=== PATIENT | male | born 1975 | race Native Hawaiian/Other Pacific Islander ===

== ENCOUNTER 2023-08-30 12:57 | Outpatient (RCR) | payer OTHER, SELFPAY ==
--- NOTE | 2023-08-30 16:17 | OT.OP.EVAL ---
Visit Care Team Role Provider Type Sravanthi Marrero MD Attending Provider Non-Staff Primary Care Provider Referring Provider Specialty: Medical Address: [address] [place] [address], [id number] Email: Occupational Therapy Initial Evaluation OT Outpatient Adult Evaluation Start: 08/30/23 15:36 Freq: Status: Active Protocol: Document 08/30/23 15:37 AMS (Rec: 08/30/23 16:17 AMS [id number]) General Information - Adult Visit Number EVAL CHARGE ONLY; 0/12 visits authorized Plan of Care Dates 08/30/23 - 10/11/23 Insurance Information Prime; EVAL CHARGE ONLY; *12 visits auth Visit Start Time 13:30 Visit Stop Time 14:00 Total Visit Minutes 30 Treatment Setting Outpatient Care Note Type Initial Evaluation Identification Confirmed Yes Identification Confirmed By Self Goals Group Home Goals 1. Zev will be modified independent with home exercise program utilizing provided written and visual instructions from therapist as needed. 2. Zev will present with increased functional independence; this will be evidenced by the followina. Zev will obtain a QuickDASH UE Outcome Measure score 20.00 or less. 2b. Zev will obtain a QuickDASH UE Outcome Work Module score 30.00 or less. 2c. Zev will indicate 2 or less out of 10 on the Pain Assessment Grid relative to the L wrist. Assessment/Plan Treatment Assessment Zev is a 48 year-old left hand dominant male referred to outpatient OT secondary to L wrist pain s/p CSI for L trigger thumb. Medical history is significant for arthritis, back pain, blood pressure ( medication managed). 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 He completed Pain Assessment Grid and indicated 3 out of 10 on pain scale relative to dorsal L thumb and ulnar/volar surface of L wrist. Pain presents intermittently; he will cease an activity, including weight lifting/use of weights or bench press if pain presents. Report of receipt of corticosteroid injections every 6 months to L shoulder/L thumb (d/t trigger finger). Report of receipt of corticosteroid injection to L thumb approx 1 month ago d/t locking of thumb into flexion. QuickDASH UE Outcome Measure Score = 31.82; QuickDASH UE Outcome Work Module Score = 50 .00. Zev denied any numbness and/or tingling. Goniometer measurements were as follows: 43 degrees active pain-free L wrist flex vs 51 degrees active pain-free R wrist flex; 48 degrees active pain-free L wrist ext vs 47 degrees active pain-free R wrist ext; 15 degrees active pain-free L wrist RD vs 16 degrees active pain-free R wrist RD; 27 degrees active pain-free L wrist UD vs 30 degrees active pain-free R wrist UD. (+) intrinsic tightness noted bilaterally. (+) opposition to L 5th digit pad and base of L 5th digit. 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 males norm of 113.6 +/- 18.1) vs 47.0# of force L automatic mold sander ( compared to 50-54 y.o. males norm 101.9 +/- 17.0) w/ dynamometer II testing w/ elbow in 90 degrees flex. B 5/ 5 MMT w/ wrist flex/ext/RD/UD. Zev would likely benefit from outpatient OT secondary to intrinsic tightness, L wrist pain/discomfort, decreased L wrist range of motion, and decreased L automatic mold sander strength. Home Exercise Program 08/30/23 = Instructed in tendon glide(s) w/ focus on hook fist (hold vs passive assist from contralateral hand vs use of TT). Instructed in passive wrist flex and wrist ext w/ forearm supination and elbow extended w/ both passive exercises. Instructed to complete these exercises 1 x daily (w/ passive holds of 20 to 30 seconds). May need to do additional repetitions based on activities/repetitive use of hands/wrists. Length of treatment (weeks) 6 Plan of Care Start Date 08/30/23 Plan of Care End Date 10/11/23 Treatment Frequency Once a Week Therapeutic Contents Active Range of Motion,Client Education,Functional Activities,Home Exercise Program,Joint Protection, Manual Therapy,Education, Neurodevelopment Treatment, Neuromuscular Re-Education, Self-Care,Stretching/ Flexibility Activities, Therapeutic Activities, Therapeutic Exercises, Modalities Modalities As Needed,As Prescribed Additional Types of Modalities Heat/Ice/Contrast Baths/ Ultrasound
--- NOTE | 2023-09-23 15:58 | OT.OP.TRT ---
Visit Care Team Role Provider Type Sravanthi Marrero MD Attending Provider Non-Staff Primary Care Provider Referring Provider Specialty: Medical Address: [address] [place] [address], [id number] Email: Occupational Therapy Treatment Note OT Outpatient Treatment Note - Adult Start: 08/30/23 15:36 Freq: Status: Active Protocol: Document 09/23/23 15:48 AMS (Rec: 09/23/23 15:58 AMS [id number]) OT Outpatient Adult Treatment Note Session Time Visit Start Time 14:30 Visit Stop Time 14:55 Total Visit Minutes 25 Visit Information Visit Number 10/01 visits authorized Plan of Care Dates 08/30/23 - 10/11/23 Insurance Information Prime; EVAL CHARGE ONLY; *12 visits auth Setting Treatment Setting Outpatient Care Visit Type Note Type Treatment Note General Information General Information Zev is a 48 year-old left hand dominant male referred to outpatient OT secondary to L wrist pain s/p CSI for L trigger thumb. Medical history is significant for arthritis, back pain, blood pressure ( medication managed). 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 - Subjective Identification Type Name Identification Reconciled With Medical Record Observations Report of pain/discomfort of ulnar surface of L wrist. Reports having membership to [employer]; utilizing 20# DB w/ L hand vs 30# w/ R hand w/ bicep curls/alt bicep curls . (+) execution of bench press . Patient/Caregiver Compliance with Home Good Exercise Program Comment reports doing stretches - Objective Objective Measurements Please refer to below for progress towards meeting established OT goals: Long-Term Goals 1. Zev will be modified independent with home exercise program utilizing provided written and visual instructions from therapist as needed. 2. Zev will present with increased functional independence; this will be evidenced by the followina. Zev will obtain a QuickDASH UE Outcome Measure score 20.00 or less. 2b. Zev will obtain a QuickDASH UE Outcome Work Module score 30.00 or less. 2c. Zev will indicate 2 or less out of 10 on the Pain Assessment Grid relative to the L wrist. - Exercises 2 Descriptor Spherical weighted ball strengthening. 5.5# weighted spherical ball. Wrist ext forearm supported. 1 x 10. Wrist flex forearm supported. 1 x 10. Wrist ext, elbow ext, forearm not supported. 1 x 10. Weighted ball catch forearm supination. 1 x 10. Wrist UD/ball twist. [address]/ball twist. 1 x 10. Forearm supination/pronation. 1 x 10. 1 Descriptor Wrist stretches. - Assessment Assessment of Improvement Zev reported having membership at [employer] w / active modifications to strengthening routine given wrist pain; Zev also reported adjusting home strengthening routine (push- ups) given wrist pain actively utilizing push-up handles. Also rec fist push-ups, use of dumbbells for push-ups, chair dips or wall push-ups as additonal alternatives for home strengthening. Introduced spherical weighted ball as an option for distal UE strengthening; (+) response to this tool. This may be an option for home distal UE strengthening and Zev to consider further. 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 Home Exercise Program 09/23/23 = Weighted spherical ball 5.5#. Instructed in wrist ext forearm supported, wrist flex forearm supported, wrist ext, elbow ext, forearm not supported, weighted ball catch forearm supination, wrist UD/ ball twist, wrist RD/ball twist, and forearm supination/ pronation w/ elbow 90 degrees flex. Rec 3 x 15 every other day, 3 x a week. 08/30/23 = Instructed in tendon glide(s) w/ focus on hook fist (hold vs passive assist from contralateral hand vs use of TT). Instructed in passive wrist flex and wrist ext w/ forearm supination and elbow extended w/ both passive exercises. Instructed to complete these exercises 1 x daily (w/ passive holds of 20 to 30 seconds). May need to do additional repetitions based on activities/repetitive use of hands/wrists. - Plan Therapy Recommendations Continue with Current Program, Advance per Rehabilitation Protocol
--- NOTE | 2023-10-25 09:06 | OT.OP.DC ---
Visit Care Team Role Provider Type Sravanthi Marrero MD Attending Provider Non-Staff Primary Care Provider Referring Provider Address: [address] [place] [address], [id number] Email: OT Outpatient OT Outpatient Adult Evaluation Start: 08/30/23 15:36 Freq: Status: Active Protocol: Document 08/30/23 15:37 AMS (Rec: 08/30/23 16:17 AMS [id number]) General Information - Adult Visit Information Visit Number EVAL CHARGE ONLY; 0/12 visits authorized Plan of Care Dates 08/30/23 - 10/11/23 Insurance Information Prime; EVAL CHARGE ONLY; *12 visits auth Session Time Visit Start Time 13:30 Visit Stop Time 14:00 Total Visit Minutes 30 Setting Treatment Setting Outpatient Care Visit Type Note Type Initial Evaluation Identification Identification Confirmed Yes Identification Confirmed By Self Goals Passenger Brakeman Goals Passenger Brakeman Goals 1. Zev will be modified independent with home exercise program utilizing provided written and visual instructions from therapist as needed. 2. Zev will present with increased functional independence; this will be evidenced by the followina. Zev will obtain a QuickDASH UE Outcome Measure score 20.00 or less. 2b. Zev will obtain a QuickDASH UE Outcome Work Module score 30.00 or less. 2c. Zev will indicate 2 or less out of 10 on the Pain Assessment Grid relative to the L wrist. Assessment/Plan Assessment Treatment Assessment Zev is a 48 year-old left hand dominant male referred to outpatient OT secondary to L wrist pain s/p CSI for L trigger thumb. Medical history is significant for arthritis, back pain, blood pressure ( medication managed). 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 He completed Pain Assessment Grid and indicated 3 out of 10 on pain scale relative to dorsal L thumb and ulnar/volar surface of L wrist. Pain presents intermittently; he will cease an activity, including weight lifting/use of weights or bench press if pain presents. Report of receipt of corticosteroid injections every 6 months to L shoulder/L thumb (d/t trigger finger). Report of receipt of corticosteroid injection to L thumb approx 1 month ago d/t locking of thumb into flexion. QuickDASH UE Outcome Measure Score = 31.82; QuickDASH UE Outcome Work Module Score = 50 .00. Zev denied any numbness and/or tingling. Goniometer measurements were as follows: 43 degrees active pain-free L wrist flex vs 51 degrees active pain-free R wrist flex; 48 degrees active pain-free L wrist ext vs 47 degrees active pain-free R wrist ext; 15 degrees active pain-free L wrist RD vs 16 degrees active pain-free R wrist RD; 27 degrees active pain-free L wrist UD vs 30 degrees active pain-free R wrist UD. (+) intrinsic tightness noted bilaterally. (+) opposition to L 5th digit pad and base of L 5th digit. 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 males norm of 113.6 +/- 18.1) vs 47.0# of force L keel press operator ( compared to 50-54 y.o. males norm 101.9 +/- 17.0) w/ dynamometer II testing w/ elbow in 90 degrees flex. B 5/ 5 MMT w/ wrist flex/ext/RD/UD. Zev would likely benefit from outpatient OT secondary to intrinsic tightness, L wrist pain/discomfort, decreased L wrist range of motion, and decreased L keel press operator strength. Home Exercise Program 08/30/23 = Instructed in tendon glide(s) w/ focus on hook fist (hold vs passive assist from contralateral hand vs use of TT). Instructed in passive wrist flex and wrist ext w/ forearm supination and elbow extended w/ both passive exercises. Instructed to complete these exercises 1 x daily (w/ passive holds of 20 to 30 seconds). May need to do additional repetitions based on activities/repetitive use of hands/wrists. Plan Length of treatment (weeks) 6 Plan of Care Start Date 08/30/23 Plan of Care End Date 10/11/23 Treatment Frequency Once a Week Therapeutic Contents Active Range of Motion,Client Education,Functional Activities,Home Exercise Program,Joint Protection, Manual Therapy,Education, Neurodevelopment Treatment, Neuromuscular Re-Education, Self-Care,Stretching/ Flexibility Activities, Therapeutic Activities, Therapeutic Exercises, Modalities Modalities As Needed,As Prescribed Additional Types of Modalities Heat/Ice/Contrast Baths/ Ultrasound Functional Wrist/Hand Scan Hand Side Sensory Assessment Sensory Profile2 OT Outpatient Treatment Note - Adult Start: 08/30/23 15:36 Freq: Status: Active Protocol: Document 10/25/23 08:58 AMS (Rec: 10/25/23 09:00 [facility] [id number]) OT Outpatient Adult Treatment Note Visit Information Visit Number 10/01 visits authorized Plan of Care Dates 08/30/23 - 10/11/23 Insurance Information Prime; EVAL CHARGE ONLY; *12 visits auth Setting Treatment Setting Outpatient Care Visit Type Note Type Discharge Summary - Subjective Observations Zev has not been seen in the outpatient setting by OT since 09/23/2023 and outpatient OT POC 10/11/23. Thus, recommend d/c from outpatient OT at this time and re- evaluate as deemed appropriate by PCP with receipt of new referral. - Objective Objective Measurements Please refer to below for progress towards meeting established OT goals: Passenger Brakeman Goals ALL GOALS D/C 10/25/23 1. Zev will be modified independent with home exercise program utilizing provided written and visual instructions from therapist as needed. 2. Zev will present with increased functional independence; this will be evidenced by the followina. Zev will obtain a QuickDASH UE Outcome Measure score 20.00 or less. 2b. Zev will obtain a QuickDASH UE Outcome Work Module score 30.00 or less. 2c. Zev will indicate 2 or less out of 10 on the Pain Assessment Grid relative to the L wrist. - - Assessment Assessment of Improvement Zev has not been seen in the outpatient setting by OT since 09/23/2023 and outpatient OT POC 10/11/23. Thus, recommend d/c from outpatient OT at this time and re- evaluate as deemed appropriate by PCP with receipt of new referral. - Plan Therapy Recommendations Discharge from Occupational Therapy
== END 2023-10-27 10:15 | disposition home or self-care (01) ==
LOC: OT 12:57
PROVIDERS: PCP Student in an Organized Health Care Education/Training Program; Referring Provider Student in an Organized Health Care Education/Training Program; Visit Provider Student in an Organized Health Care Education/Training Program
DX: M25.532 Pain in left wrist (principal); M79.646 Pain in unspecified finger(s)
CPT/HCPCS: 97110; 97165